=== PATIENT | female | born 2000 | race Hispanic/Latino ===

== ENCOUNTER 2024-09-12 12:07 | Emergency (ER) | payer BC, SELFPAY ==
[2024-09-12 12:08] VITALS: BP 134/83
[2024-09-12 12:32] LABS: % Basophils 0.7 % (0-2); % Immature Granulocytes 0.1 % (0-0.5); % Monocytes 6.4 % (1.7-9.3); % Neutrophils 57.8 % (42.2-75.2); Absolute Basophils 0.1 10^3/uL (0-0.2); Absolute Eosinophils 0.1 10^3/uL (0-0.7); Absolute Lymphocytes 2.3 10^3/uL (1.2-3.4); Absolute Monocytes 0.4 10^3/uL (0.1-0.6); Absolute Neutrophils 3.9 10^3/uL (1.4-6.5); Hematocrit 41.3 % (37.0-47.0); Hemoglobin 14.5 g/dL (12.0-16.0); Mean Corp Hgb Conc. 35.1 g/dL (33.0-37.0); Mean Corpuscular Hgb 29.5 pg (27.0-31.0); Mean Corpuscular Volume 84.1 fL (81.0-99.0); Mean Platelet Volume 9.9 fL (7.4-10.4); Nucleated Red Blood Cells % 0 %; Platelet Count 258 10^3/uL (130-400); Red Blood Cell Count 4.91 10^6/uL (4.20-5.40); White Blood Cell Count 6.7 10^3/uL (4.8-10.8)
[2024-09-12 12:43] LABS: HCG, Serum Qualitative Screen Negative
[2024-09-12 12:48] LABS: ALT (SGPT) 55 U/L (0-35); AST (SGOT) 37 U/L (14-36); Albumin 4.7 g/dl (3.5-5.0); Alkaline Phosphatase 61 U/L (38-126); Blood Urea Nitrogen 14 mg/dl (7-17); Calcium 9.7 mg/dl (8.4-10.2); Carbon Dioxide 25 mmol/L (22-30); Chloride 101 mmol/L (98-107); Glucose 103 mg/dl (70-99); Potassium 4.3 mmol/L (3.5-5.1); Sodium 135 mmol/L (135-145); Total Bilirubin 0.7 mg/dl (0.2-1.3); Total Protein 7.2 g/dl (6.3-8.2); eGFR > 60.00
[2024-09-12 13:43] LABS: Lipase 63 U/L (23-300)
--- NOTE | 2024-09-12 14:06 | ED.GENMED ---
History of Present Illness
General
Chief Complaint: Abdominal Symptoms
Source: patient
Exam Limitations: none
Time Seen by Provider: 09/12/24 13:38
Nursing documentation reviewed up to this point in time: agreed with
History of Present Illness
History of Present Illness:
pt is a 24 y/o F with h/o nausea/vomiting an depigastirc pain x 3 days
says that she had her GB removed in 2022 at [facility] and was told she had a very small bile duct and they didn't think she had retained stone; no stent
removed gb and was told the path was abnormal but that itw asn't anything to worry about and that it was all out
she says 'ever since, i have had chronic problems with my stoamch' where she gets episodes of nauase/vomiting
she gets it monthly; this one was particularly worse due to length ofs ymptoms;
she had been to another hosptial before with this and was given IVF and told it wasn't anything to worry about
she did see a GI and had full W/U and endoscopy; mild gastritis, but doesn't take PPI
she denies use of marijuana
no fever, chills, syncope, diarrhea, bloody stool, black stool
pt is vomiting anything she drinks or eats the past 3 days
fatigue
Past History
Past History
ED Past Medical History: GERD and Other (gallstones)
ED Past Surgical History: Cholecystectomy
Social History
Tobacco: Non-smoker
Alcohol: None
Drug: None
Personal:
Living: with family
Review of Systems
Review of Systems
Allergies reviewed?: Yes
All Other Systems: Not applicable
Phy Exam
Physical Exam
Physical Exam:
GENERAL: Alert , in no apparent distress
EYE: pupils equal and reactive
NECK: Supple
ENT: o/p clr, mmm.
CARDIAC: Regular rate and rhythm .
LUNGS: Clear breath sounds bilaterally, no acute respiratory distress, no wheezes/rales/rhonchi
ABDOMEN: Soft, mild epigastric tenderness s, no r/g, no cvat, normal bowel sounds
NEUROLOGICAL: Alert and oriented, no focal neuro deficits
SKIN: Warm and dry, skin intact.
MUSCULOSKELETAL: No edema, well perfused. neg kristin's sign
PSYCH: Normal and appropriate interaction.
Course
Orders/Labs/Results
Orders:
Orders
09/12/24 12:12
Test Result ONCE
09/12/24 12:16
Complete Blood Count/With Diff Urgent
Comprehensive Metabolic Panel Urgent
HCG, Serum Qualitative Screen Urgent
Lipase Urgent
09/12/24 14:04
0.9% Sodium Chloride 1000 ml [Nss] 1,000 ml IV BOLUS
Ondansetron Injectable [Zofran] 4 mg IV NOW STA
Pantoprazole [Protonix IV] 40 mg IV NOW STA
US Abdomen Complete/Upper Urgent
Comment:
Reason For Exam: UPPER ABD PAIN, VOMITING
09/12/24 14:49
Urinalysis Reflex To Culture Urgent
Date Specimen was Collected: 09/12/24
Time Specimen was Collected: 14:47
Comment: Clean Catch
Abnormal Lab Results
09/12/24
12:16
Glucose 103 H mg/dl
(70-99)
AST 37 H U/L
(14-36)
ALT 55 H U/L
(0-35)
09/12/24 12:16
09/12/24 12:16
Vital Signs
Initial and Last Documented VS:
Initial Vital Signs
Temp Pulse Resp BP Pulse Ox
37.1 C 86 16 134/83 98
09/12/24 12:08 09/12/24 12:08 09/12/24 12:08 09/12/24 12:08 09/12/24 12:08
Last Documented Vital Signs
Temp Pulse Resp BP Pulse Ox
37.1 C 67 18 109/73 100
09/12/24 12:08 09/12/24 16:10 09/12/24 16:10 09/12/24 16:10 09/12/24 16:10
MDM/Problems Addressed
Differential Diagnosis Includes:
gastritis, PUD
MDM/Problems Addressed:
24 y/o F
s/p lesly
has had vomiting syndromes since
no dx
has seen GI and given PPI
recently had outpatient labs showing LFTs were 160s and she is due to have them rechecked and if not then see regulatory affairs associate
2 days ago started with epigastric pain and vomiting
now vomiting anything she tries
vomiting zofran
pain is upper abdomen and feels like punch in the stomach
no burning
well appearing
comfortable
epigastric area
labs show normal wbc
ast 37
alt 55
lipase normal
i looked at the patient's portal which confirmed her LFTs were much higher 160s
her US was unremarkable
she looks well after IVF and zofran and protonix
feel that pt should f/u GI
unclear cause of her gastritis
take protonix
zofrna
tolerated po challenge
*Critical Care Note
Total Time (30-74mins, 75-104mins- exclusive of procedures): Not Applicable
ED Attending Note
-
Portions of this chart may have been created with voice recognition software.� Occasional wrong word or��sound alike� substitutions may have occurred due to the inherent limitations of voice recognition software.
Discharge Plan
Departure
Patient Disposition: Home (Routine Discharge)
Date of Disposition: 09/12/24
Time of Disposition: 16:10
Patient with high blood pressure during this ER visit?: No
Condition: Fair
Discharge Problem:
Gastritis
Instructions: Nausea and Vomiting, Adult (DC), Gastritis - Discharge instructions
Prescriptions:
New
pantoprazole [Protonix] 20 mg tablet,delayed release (DR/EC)
20 mg PO DAILY Qty: 30 0RF
Referrals:
Nirmal Rankin MD [Active] - Follow up in 5-7 days
Jose Morales DO [Family Provider] - Follow up in 2-3 days
Stand Alone Forms: Return to Work
Activity Restrictions/Additional Instructions:
YOUR BLOOD WORK SHOWED YOUR LIVER MARKERS ARE MUCH LOWER THAN THEY HAD BEEN
YOUR ULTRASOUND WAS NEGATIVE
WE ARE NOT SURE WHAT'S THE CAUSE OF YOUR ABDOMINAL PAIN AND VOMITING BUT YOU SHOULD FOLLOW UP WITH GI AND TAKE PROTONIX 20 MG ONCE A DAY ON AN EMPTY STOMACH WAIT 1 HORU BEFORE EATING IN THE MORNING
RETURN FOR WORSENING SYPMTOMS LIKE BLOODY VOMITING, SEVERE PAIN, FEVER ETC
Interventions
Interventions:
*Risk Screen - Suicide Last Done: 09/12/24 14:18
*General Assessment Last Done: 09/12/24 14:17
*Neglect/Abuse Screening Last Done: 09/12/24 14:18
*ED- Fall Risk Assessment Last Done: 09/12/24 14:17
*ED COVID-19 Vaccine History Last Done: 09/12/24 14:17
*Nursing Disposition Last Done: 09/12/24 16:29
WW-Yhszam-Fchenweuxr Assessment Last Done: 09/12/24 14:18
Discharge Date and Time
Discharge Date/Time: 09/12/24 16:29
Print Language: LUXEMBOURGER
[2024-09-12] MEDS: PROTONIX IV 40 MG IV (14:13)
[2024-09-12] MEDS: ZOFRAN 4 MG IV (14:13)
[2024-09-12] MEDS: NSS 1000 IV (14:13)
[2024-09-12 14:17] VITALS: BMI 25.0
[2024-09-12 15:01] LABS: Urine Albumin Negative (Neg - Trace); Urine Bilirubin Negative (Negative); Urine Character Clear (Clear); Urine Color Yellow; Urine Glucose Negative (Negative); Urine Ketone Negative (Negative); Urine Leukocyte Negative (Negative); Urine Nitrite Negative (Negative); Urine Occult Blood Negative (Negative); Urine Specific Gravity 1.015 (<1.030); Urine Urobilinogen Negative (Neg - 1+)
[2024-09-12 16:10] VITALS: BP 109/73
== END 2024-09-12 16:29 | disposition home or self-care (01) ==
LOC: EMR 12:07
PROVIDERS: Emergency Medicine; Physician Assistant; EMERGENCY PHYSICIAN Emergency Medicine; FAMILY PHYSICIAN Student in an Organized Health Care Education/Training Program
DX: K29.00 Acute gastritis without bleeding (principal); K21.9 Gastro-esophageal reflux disease without esophagitis; R51.9 Headache, unspecified; R53.83 Other fatigue; Z90.49 Acquired absence of other specified parts of digestive tract; Z88.8 Allergy status to other drugs, medicaments and biological substances
CPT/HCPCS: 99284; 96374; 96375; 96361; 76700; 80053; 81003; 83690; 84703; 85025

== ENCOUNTER → 2024-09-29 19:56 | Outpatient (REF) | payer BC, SELFPAY | LOC: MRI 3T 19:56 | PROVIDERS: ATTENDING PHYSICIAN Internal Medicine Gastroenterology; FAMILY PHYSICIAN Student in an Organized Health Care Education/Training Program | DX: R10.13 Epigastric pain (principal); R10.11 Right upper quadrant pain; R74.8 Abnormal levels of other serum enzymes | CPT/HCPCS: 74183; A9575 ==